=== PATIENT | male | born 1970 | race African-American/Black ===

== ENCOUNTER 2016-06-22 23:55 | Emergency (ER) | payer BC ==
--- NOTE | ~2016-06-22 | CT2 ---
[facility] A Service of [facility] & [facility] RADIOLOGY TEXT RESULTS PATIENT: KADEEM ANDERS LOCATION: [facility] : [birth year] UNIT #: [id number] AGE: [address]: Kwame Martínez MD SEX: M ORDER DR: [id number] [facility] [address] [place], [place] [address] [id number] E MR#: [id number] Acc #: [id number] NAME: KADEEM ANDERS : 1970 SEX: M STUDY DATE/TIME: 06/23/2016 0047 UNIT: [facility] ROOM: STUDY DESCRIPTION: CT Abd and Pelv W Cont Attending Physician: Kwame Martínez M.D. Ordering Physician: Kwame Martínez M.D. Primary Care Physician: Primary Care Physician No MEDICAL IMAGING REPORT This report is preliminary unless electronic signature is present EXAM CT abdomen and pelvis 06/23/2016 at 0047 hours INDICATIONS History of Crohn disease. Lower abdominal pain for the last 2 days. TECHNIQUE Axial images were obtained through the abdomen and pelvis following IV contrast administration. Multiplanar reformats were obtained. This CT exam was performed with one or more of the following radiation dose reduction techniques: automatic exposure control, adjustment of mA and/or kV according to patient size, and iterative reconstruction. COMPARISON STUDIES Comparison made with 04/23/2016. FINDINGS CT ABDOMEN: There is some atelectasis in both lung bases. Gallbladder is normal. There is diffuse hepatic steatosis. There is a cyst in the upper pole of the right kidney. The solid organs are otherwise normal. The unopacified GI tract is normal. There is no free fluid or adenopathy. CT PELVIS: Urinary bladder remains normal. There is a small volume of free fluid in the pelvis. The appendix is normal. The remainder of the colon is normal. There are some prominent mesenteric lymph nodes in the pelvis which are probably reactive. These are not significantly changed. Redemonstrated is marked abnormal wall thickening in the terminal ileum and distal segment of the ileum in the right hemipelvis. The degree of wall thickening is relatively stable from prior. There is fat stranding and fluid in the adjacent mesentery. This is also relatively stable. Findings are compatible with the given history of Crohn disease. The small bowel proximal to this inflamed area is essentially normal above a STS. [facility] A Service of [facility] RADIOLOGY TEXT RESULTS PATIENT: KADEEM ANDERS LOCATION: [facility] : [birth year] UNIT #: [id number] AGE: [address]: Kwame Martínez MD SEX: M ORDER DR: dilated loop in the right lower quadrant. This dilated ileal loop measures up to about 4.7 cm in diameter. No abscess is identified. 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 IMPRESSION 1. Redemonstrated is marked abnormal thickening of the distal and terminal ileum very similar in appearance to the prior study from 04/23/2016. There is fat stranding in the adjacent mesentery with some mesenteric fluid as well. Findings are in keeping with the given history of Crohn disease. No evidence of an abscess. The ileum just proximal to the inflamed loop is distended today. However, the rest of the small bowel is normal. Definite small bowel obstruction is not identified. 2. The colon and appendix are normal. 3. Fatty infiltration of the liver. Dictated by... Gerald Paulino Jr., M.D. THIS IS AN ELECTRONICALLY VERIFIED REPORT Gerald Paulino Jr., M.D. at 06/24/2016 6:40 AM Chase TD: 06/23/2016 12:18 JOB #: [id number] MEDICAL IMAGING REPORT COPY
[~2016-06-22 23:55] MED LIST: AMARYL2 MG PO; AMLODIPINE BESYL5 MG PO; BUDESONIDE EC3 MG PO; FLAGYL PO; GLIMEPIRIDE2 MG PO; GLUCOPHAGE500 MG PO; HUMIRA CRO40 MG/0.8 SUBQ; LEVAQUIN PO; LISINOPRIL-HCTZ1 T14 PO; PREDNISONE; PREDNISONE PO; PROTONIX PO
[2016-06-23 00:04] LABS: BASOPHIL% 0.2 % (0-2.5); DIFF IND YES; EOSINOPHIL# 0.1 X10e3 (0-0.7); EOSINOPHIL% 0.7 % (0.0-7.0); HEMATOCRIT 41.5 % (38.0-50.0); HEMOGLOBIN 13.8 gm/dL (13.0-16.0); LYMPHOCYTE# 2.2 X10e3 (1.0-3.5); MEAN CELL VOLUME 81.8 FL (83-96); MEAN CORPUSCULAR HEMOGLOBIN 27.2 PG (28-34); MEAN CORPUSCULAR HGB CONC 33.3 g/dL (30-36); MEAN PLATELET VOLUME 7.6 FL (6.5-11.5); MONOCYTE# 1.3 X10e3 (0-1.0); MONOCYTE% 7.9 % (3.0-12.0); NEUTROPHIL# 12.9 X10e3 (1.5-7.1); NEUTROPHIL% 78.2 % (40-75); PLATELET COUNT 310 X10e3 (140-420); RED BLOOD COUNT 5.07 X10e (3.90-5.60); RED CELL DISTRIBUTION WIDTH 13.4 % (11.0-15.5); WHITE BLOOD COUNT 16.5 X10e3 (4.0-10.5)
[2016-06-23 00:17] LABS: ALBUMIN SERUM 3.8 g/dL (3.5-5.0); ALKALINE PHOSPHATASE 58 U/L (32-92); ALT (SGPT) 15 U/L (10-40); AMYLASE 20 U/L (0-46); AST (SGOT) 15 U/L (10-42); BILIRUBIN, DIRECT 0.1 mg/dL (0.0-0.2); BILIRUBIN,INDIRECT 0.7 mg/dL (0.0-0.9); BILIRUBIN,TOTAL 0.8 mg/dL (0.2-2.0); BLOOD UREA NITROGEN 10 mg/dL (9-23); BUN/CREATININE RATIO 9.09; CALCIUM SERUM 8.9 mg/dL (8.4-10.2); CARBON DIOXIDE 27 mmol/L (22-31); CHLORIDE 97 mmol/L (100-111); CREATININE SERUM 1.1 mg/dL (0.6-1.4); GLOM FILT RATE Estimated ABOVE60 mL/min (>60); GLUCOSE FASTING 141 mg/dL (70-110); LIPASE 19 U/L (22-51); POTASSIUM 3.2 mmol/L (3.5-5.1); PROTEIN TOTAL SERUM 7.2 g/dL (6.0-8.3); SODIUM 134 mmol/L (135-145)
[2016-06-23 00:53] LABS: PLATELET ESTIMATE NORMAL (NORMAL)
[2016-06-23 00:54] LABS: RBC NORMAL YES; SMUDGE CELLS 4 /100
[2016-06-23 01:44] LABS: URINE SOURCE CLEAN CATCH
[2016-06-23 01:59] LABS: URINE APPEARANCE CLEAR; URINE BILIRUBIN NEG (NEG); URINE BLOOD 3+ (NEG); URINE COLOR YELLOW; URINE GLUCOSE NEG (NEG); URINE KETONE NEG (NEG); URINE LEUKOCYTE ESTERASE NEG (NEG); URINE NITRATE NEG (NEG); URINE PH 5.5 (5-8); URINE PROTEIN NEG (NEG)
[2016-06-23 02:02] LABS: CULTURE INDICATED? NO; URINE BACTERIA AUWI NEG (NEGATIVE); URINE SQUAMOUS EPITHELIAL CELL NONE SEEN /[HPF]; UWBCS1 AUWI 0-2 (0-5)
== END 2016-06-23 02:45 | disposition home or self-care (01) ==
LOC: CED 23:55
PROVIDERS: Emergency Medicine
DX: K50.90 Crohn's disease, unspecified, without complications (principal); Z79.899 Other long term (current) drug therapy; Z87.891 Personal history of nicotine dependence
CPT/HCPCS: 36415; 74177; 80048; 80076; 81003; 82150; 83690; 85025; 96361; 96372; 96374; 96375; 96376; 99284; J0500; J1170; J2930; Q9967

== ENCOUNTER 2016-06-27 19:40 | Emergency (ER) | payer BC ==
[2016-06-27 18:57] LABS: BASOPHIL% 0.3 % (0-2.5); EOSINOPHIL# 0.1 X10e3 (0-0.7); EOSINOPHIL% 0.6 % (0.0-7.0); HEMATOCRIT 42.5 % (38.0-50.0); LYMPHOCYTE# 2.4 X10e3 (1.0-3.5); LYMPHOCYTE% 13.9 % (17.0-45.0); MEAN CELL VOLUME 81.3 FL (83-96); MEAN CORPUSCULAR HEMOGLOBIN 26.7 PG (28-34); MEAN CORPUSCULAR HGB CONC 32.8 g/dL (30-36); MEAN PLATELET VOLUME 7.1 FL (6.5-11.5); MONOCYTE# 1.3 X10e3 (0-1.0); MONOCYTE% 7.1 % (3.0-12.0); NEUTROPHIL# 13.7 X10e3 (1.5-7.1); NEUTROPHIL% 78.1 % (40-75); PLATELET COUNT 350 X10e3 (140-420); RED BLOOD COUNT 5.23 X10e (3.90-5.60); RED CELL DISTRIBUTION WIDTH 13.4 % (11.0-15.5); WHITE BLOOD COUNT 17.5 X10e3 (4.0-10.5)
[2016-06-27 18:59] LABS: DIFF IND YES
[2016-06-27 19:14] LABS: ALBUMIN SERUM 3.8 g/dL (3.5-5.0); ALKALINE PHOSPHATASE 59 U/L (32-92); ALT (SGPT) 30 U/L (10-40); AMYLASE 54 U/L (0-46); AST (SGOT) 22 U/L (10-42); BILIRUBIN, DIRECT 0.1 mg/dL (0.0-0.2); BILIRUBIN,INDIRECT 0.1 mg/dL (0.0-0.9); BILIRUBIN,TOTAL 0.2 mg/dL (0.2-2.0); BLOOD UREA NITROGEN 12 mg/dL (9-23); CARBON DIOXIDE 30 mmol/L (22-31); CHLORIDE 97 mmol/L (100-111); CREATININE SERUM 1.1 mg/dL (0.6-1.4); GLOM FILT RATE Estimated ABOVE60 mL/min (>60); GLUCOSE FASTING 135 mg/dL (70-110); LIPASE 62 U/L (22-51); POTASSIUM 3.2 mmol/L (3.5-5.1); PROTEIN TOTAL SERUM 7.1 g/dL (6.0-8.3); SODIUM 138 mmol/L (135-145)
[2016-06-27 19:19] LABS: PLATELET ESTIMATE NORMAL (NORMAL); RBC NORMAL YES
== END 2016-06-27 22:30 | disposition home or self-care (01) ==
LOC: CED 19:40
PROVIDERS: Emergency Medicine
DX: K50.90 Crohn's disease, unspecified, without complications (principal); E11.9 Type 2 diabetes mellitus without complications; I10 Essential (primary) hypertension
CPT/HCPCS: 36415; 80048; 80076; 82150; 83690; 85025; 96361; 96374; 96375; 96376; 99284; J2270; J2550; J2930

== ENCOUNTER 2016-07-14 18:47 | Emergency (ER) | payer BC ==
[2016-07-14 20:07] LABS: BASOPHIL% 0.1 % (0-2.5); DIFF IND YES; EOSINOPHIL% 0.3 % (0.0-7.0); HEMATOCRIT 40.2 % (38.0-50.0); HEMOGLOBIN 13.1 gm/dL (13.0-16.0); LYMPHOCYTE# 1.4 X10e3 (1.0-3.5); LYMPHOCYTE% 8.1 % (17.0-45.0); MEAN CORPUSCULAR HEMOGLOBIN 26.7 PG (28-34); MEAN CORPUSCULAR HGB CONC 32.5 g/dL (30-36); MEAN PLATELET VOLUME 7.2 FL (6.5-11.5); MONOCYTE# 1.1 X10e3 (0-1.0); MONOCYTE% 6.4 % (3.0-12.0); NEUTROPHIL# 14.9 X10e3 (1.5-7.1); NEUTROPHIL% 85.1 % (40-75); PLATELET COUNT 239 X10e3 (140-420); RED BLOOD COUNT 4.91 X10e (3.90-5.60); RED CELL DISTRIBUTION WIDTH 14.1 % (11.0-15.5); WHITE BLOOD COUNT 17.6 X10e3 (4.0-10.5)
[2016-07-14 20:32] LABS: PLATELET ESTIMATE NORMAL (NORMAL); RBC NORMAL YES
[2016-07-14 20:43] LABS: ALBUMIN SERUM 3.4 g/dL (3.5-5.0); BILIRUBIN, DIRECT 0.3 mg/dL (0.0-0.2); BILIRUBIN,INDIRECT 0.9 mg/dL (0.0-0.9); BILIRUBIN,TOTAL 1.2 mg/dL (0.2-2.0); BUN/CREATININE RATIO 11.11; CALCIUM SERUM 8.7 mg/dL (8.4-10.2); CREATININE SERUM 0.9 mg/dL (0.6-1.4); GLOM FILT RATE Estimated 116.6 mL/min (>60); POTASSIUM 3.9 mmol/L (3.5-5.1); PROTEIN TOTAL SERUM 6.3 g/dL (6.0-8.3)
== END 2016-07-14 22:45 | disposition home or self-care (01) ==
LOC: CED 18:47
PROVIDERS: Emergency Medicine
DX: K50.90 Crohn's disease, unspecified, without complications (principal)
CPT/HCPCS: 36415; 80048; 80076; 82150; 83690; 85025; 96361; 96365; 96375; 99284; J1170; J2270; J2930

== ENCOUNTER 2016-08-09 23:59 | Emergency (ER) | payer BC ==
[2016-08-09 22:30] LABS: BASOPHIL% 0.3 % (0-2.5); EOSINOPHIL# 0.1 X10e3 (0-0.7); EOSINOPHIL% 0.4 % (0.0-7.0); HEMATOCRIT 40.9 % (38.0-50.0); HEMOGLOBIN 13.3 gm/dL (13.0-16.0); LYMPHOCYTE# 2.6 X10e3 (1.0-3.5); MEAN CELL VOLUME 82.7 FL (83-96); MEAN CORPUSCULAR HEMOGLOBIN 26.9 PG (28-34); MEAN CORPUSCULAR HGB CONC 32.6 g/dL (30-36); MEAN PLATELET VOLUME 7.4 FL (6.5-11.5); MONOCYTE# 1.2 X10e3 (0-1.0); NEUTROPHIL# 11.4 X10e3 (1.5-7.1); NEUTROPHIL% 74.3 % (40-75); PLATELET COUNT 299 X10e3 (140-420); RED BLOOD COUNT 4.95 X10e (3.90-5.60); RED CELL DISTRIBUTION WIDTH 13.3 % (11.0-15.5); WHITE BLOOD COUNT 15.4 X10e3 (4.0-10.5)
[2016-08-09 22:43] LABS: DIFF IND NO
[2016-08-09 22:48] LABS: ANISOCYTOSIS SL; DIFFERENTIAL COMMENT ATYP.LYMPHS; OVALOCYTES PRESENT; PLATELET ESTIMATE NORMAL (NORMAL)
[2016-08-09 22:57] LABS: BILIRUBIN, DIRECT 0.1 mg/dL (0.0-0.2); BILIRUBIN,INDIRECT 0.6 mg/dL (0.0-0.9); BILIRUBIN,TOTAL 0.7 mg/dL (0.2-2.0); BUN/CREATININE RATIO 8.33; CALCIUM SERUM 9.2 mg/dL (8.4-10.2); CREATININE SERUM 1.2 mg/dL (0.6-1.4); GLOM FILT RATE Estimated 82.4 mL/min (>60); POTASSIUM 3.5 mmol/L (3.5-5.1)
== END 2016-08-10 01:45 | disposition home or self-care (01) ==
LOC: CED 23:59
PROVIDERS: Emergency Medicine
DX: K50.90 Crohn's disease, unspecified, without complications (principal); Z98.890 Other specified postprocedural states
CPT/HCPCS: 36415; 80048; 80076; 82150; 83690; 85025; 96361; 96374; 96375; 99284; J1170; J2405; J2930

== ENCOUNTER 2016-08-26 12:43 | Emergency (ER) | payer BC ==
--- NOTE | ~2016-08-26 | CT2 ---
[facility] A Service of [facility] RADIOLOGY TEXT RESULTS PATIENT: KADEEM ANDERS LOCATION: [facility] : 66 UNIT #: [id number] AGE: [address]: Nelson Napier DO SEX: M ORDER DR: [id number] [facility] [address] [place], [place] [address] [id number] E MR#: [id number] Acc #: [id number] NAME: KADEEM ANDERS : 1970 SEX: M STUDY DATE/TIME: 08/26/2016 16:59 UNIT: [place] ROOM: STUDY DESCRIPTION: CT Abd and Pelv W Cont Attending Physician: Nelson Napier D.O. Ordering Physician: Nelson Napier D.O. Primary Care Physician: Primary Care Physician No MEDICAL IMAGING REPORT This report is preliminary unless electronic signature is present EXAM CT abdomen and pelvis with contrast, 08/26/2016 HISTORY 46-year-old male with abdominal pain today. History of Crohn disease. COMPARISON CT abdomen and pelvis 06/23/[address] exam was performed with one or more of the following radiation dose reduction techniques: automatic exposure control, adjustment of mA and/or kV according to patient size, and iterative reconstruction. FINDINGS There is mild dependent bibasilar atelectasis in the visualized lung bases. The liver, spleen, pancreas, gallbladder, both adrenal glands are within normal limits. Stable right renal cyst. Kidneys otherwise unremarkable. Abdominal aorta normal in course and caliber without dissection. There is a trace amount of perihepatic ascites. There is again noted long-segment circumferential thickening of the distal ileum with moderate associated mesenteric inflammatory stranding. This results in multiple mildly dilated and fluid-filled loops of distal jejunum and ileum. Findings consistent with history of Crohn disease and acute inflammation. There are multiple reactive lymph nodes in the small bowel mesentery. No evidence of a drainable abscess. The appendix is normal. Colon is unremarkable. No free intraperitoneal air. The urinary bladder and prostate gland are unremarkable. There is a small amount of free pelvic fluid. No acute bony abnormality. [facility] A Service of [facility] RADIOLOGY TEXT RESULTS PATIENT: KADEEM ANDERS LOCATION: [facility] : 66 UNIT #: [id number] AGE: [address]: Nelson Napier DO SEX: M ORDER DR: 1. Acute inflammation of a long segment of the distal ileum, likely secondary to active Crohn disease. There is moderate mesenteric inflammatory stranding with free fluid in the mesentery, pelvis, and perihepatic space. No free intraperitoneal air. The segmental inflammation results in multiple minimally dilated and fluid-filled loops of distal jejunum and ileum. 2. Normal appendix. Dictated by... Timoteo Everett M.D. THIS IS AN ELECTRONICALLY VERIFIED REPORT Timoteo Everett M.D. at 08/27/2016 10:57 PM TYESHA/tena TD: 08/26/2016 21:55 JOB #: [id number] MEDICAL IMAGING REPORT Page 1 of 1 COPY
--- NOTE | ~2016-08-26 | CR2 ---
[facility] A Service of [facility] RADIOLOGY TEXT RESULTS PATIENT: KADEEM ANDERS LOCATION: [place] : 66 UNIT #: [id number] AGE: [address]: Nelson Napier DO SEX: M ORDER DR: [id number] [facility] [address] [place], [place] [address] [id number] E MR#: [id number] Acc #: [id number] NAME: KADEEM ANDERS : 1970 SEX: M STUDY DATE/TIME: 08/26/2016 14:21 UNIT: [facility] ROOM: STUDY DESCRIPTION: CR Abdomen Acute Series Attending Physician: Nelson Napier D.O. Ordering Physician: Nelson Napier D.O. Primary Care Physician: No Primary Care Physician MEDICAL IMAGING REPORT This report is preliminary unless electronic signature is present EXAM Acute abdominal series. HISTORY Crohn episode. Pain today. Crohn's disease. REPORT AP radiograph of the chest is presented with supine and upright radiographs of the abdomen and pelvis. COMPARISON CT examination 06/23/2016. FINDINGS Degenerative changes in the spine. No acute appearing bony abnormality. Heart normal in size. Mediastinal contours are normal. The lungs are well inflated and clear. The bowel gas pattern is normal. No free air. Non indication of ileus or obstruction. Air and stool seen through colon to rectum. Where visible, solid organ contours unremarkable. If it would assist in patient management, CT of abdomen and pelvis could be further assessed with repeat CT examination, Dictated by... Antonio Miller M.D. THIS IS AN ELECTRONICALLY VERIFIED REPORT Antonio Miller M.D. at 08/28/2016 9:03 AM GISEL/ricardo TD: 08/26/2016 16:26 JOB #: [id number] [facility] A Service of [facility] RADIOLOGY TEXT RESULTS PATIENT: KADEEM ANDERS LOCATION: [place] : [birth year] UNIT #: [id number] AGE: [address]: Nelson Napier DO SEX: M ORDER DR: MEDICAL IMAGING REPORT Page 1 of 1 COPY
[2016-08-26 13:41] LABS: URINE SOURCE CLEAN CATCH
[2016-08-26 13:51] LABS: URINE APPEARANCE CLEAR; URINE BILIRUBIN NEG (NEG); URINE BLOOD 3+ (NEG); URINE COLOR YELLOW; URINE GLUCOSE NEG (NEG); URINE KETONE TRACE (NEG); URINE LEUKOCYTE ESTERASE NEG (NEG); URINE NITRATE NEG (NEG); URINE PROTEIN NEG (NEG); URINE SPECIFIC GRAVITY 1.031 (1.003-1.035)
[2016-08-26 14:14] LABS: URINE BACTERIA AUWI NEG (NEGATIVE); URINE SQUAMOUS EPITHELIAL CELL NONE SEEN /[HPF]; UWBCS1 AUWI 0-2 (0-5)
[2016-08-26 14:22] LABS: BASOPHIL% 0.2 % (0-2.5); DIFF IND YES; EOSINOPHIL# 0.1 X10e3 (0-0.7); EOSINOPHIL% 0.3 % (0.0-7.0); HEMATOCRIT 41.7 % (38.0-50.0); HEMOGLOBIN 13.5 gm/dL (13.0-16.0); LYMPHOCYTE# 2.6 X10e3 (1.0-3.5); LYMPHOCYTE% 16.9 % (17.0-45.0); MEAN CELL VOLUME 83.1 FL (83-96); MEAN CORPUSCULAR HEMOGLOBIN 26.9 PG (28-34); MEAN CORPUSCULAR HGB CONC 32.3 g/dL (30-36); MEAN PLATELET VOLUME 7.2 FL (6.5-11.5); MONOCYTE% 6.6 % (3.0-12.0); NEUTROPHIL# 11.8 X10e3 (1.5-7.1); PLATELET COUNT 297 X10e3 (140-420); RED BLOOD COUNT 5.02 X10e (3.90-5.60); RED CELL DISTRIBUTION WIDTH 13.1 % (11.0-15.5); WHITE BLOOD COUNT 15.5 X10e3 (4.0-10.5)
[2016-08-26 14:25] LABS: CULTURE INDICATED? NO
[2016-08-26 14:35] LABS: BILIRUBIN, DIRECT 0.1 mg/dL (0.0-0.2); BILIRUBIN,INDIRECT 0.8 mg/dL (0.0-0.9); BILIRUBIN,TOTAL 0.9 mg/dL (0.2-2.0); CALCIUM SERUM 9.3 mg/dL (8.4-10.2); GLOM FILT RATE Estimated 102.7 mL/min (>60); POTASSIUM 3.7 mmol/L (3.5-5.1); PROTEIN TOTAL SERUM 7.1 g/dL (6.0-8.3)
[2016-08-26 15:09] LABS: PLATELET ESTIMATE NORMAL (NORMAL)
== END 2016-08-26 19:30 | disposition home or self-care (01) ==
LOC: CED 12:43
PROVIDERS: Emergency Medicine
DX: K50.90 Crohn's disease, unspecified, without complications (principal)
CPT/HCPCS: 36415; 74022; 74177; 80048; 80076; 81003; 83690; 85025; 96361; 96374; 96375; 96376; 99284; J1170; J2405; Q9967

== ENCOUNTER 2016-09-14 00:43 | Emergency (ER) | payer BC ==
[2016-09-14 03:21] LABS: BASOPHIL# 0.1 X10e3 (0-0.3); BASOPHIL% 0.4 % (0-2.5); EOSINOPHIL# 0.1 X10e3 (0-0.7); EOSINOPHIL% 0.6 % (0.0-7.0); HEMATOCRIT 41.4 % (38.0-50.0); HEMOGLOBIN 13.3 gm/dL (13.0-16.0); LYMPHOCYTE# 2.3 X10e3 (1.0-3.5); LYMPHOCYTE% 18.5 % (17.0-45.0); MEAN CELL VOLUME 83.7 FL (83-96); MEAN CORPUSCULAR HEMOGLOBIN 26.8 PG (28-34); MEAN PLATELET VOLUME 7.5 FL (6.5-11.5); MONOCYTE# 1.1 X10e3 (0-1.0); MONOCYTE% 8.5 % (3.0-12.0); NEUTROPHIL# 9.1 X10e3 (1.5-7.1); PLATELET COUNT 271 X10e3 (140-420); RED BLOOD COUNT 4.95 X10e (3.90-5.60); RED CELL DISTRIBUTION WIDTH 13.5 % (11.0-15.5); WHITE BLOOD COUNT 12.6 X10e3 (4.0-10.5)
[2016-09-14 03:23] LABS: DIFF IND NO
[2016-09-14 03:45] LABS: ALBUMIN SERUM 3.8 g/dL (3.5-5.0); BILIRUBIN, DIRECT 0.1 mg/dL (0.0-0.2); BILIRUBIN,INDIRECT 0.3 mg/dL (0.0-0.9); BILIRUBIN,TOTAL 0.4 mg/dL (0.2-2.0); BUN/CREATININE RATIO 6.42; CREATININE SERUM 1.4 mg/dL (0.6-1.4); GLOM FILT RATE Estimated 68.4 mL/min (>60); POTASSIUM 3.5 mmol/L (3.5-5.1); PROTEIN TOTAL SERUM 6.8 g/dL (6.0-8.3)
== END 2016-09-14 05:45 | disposition home or self-care (01) ==
LOC: CED 00:43
PROVIDERS: Emergency Medicine
DX: R10.9 Unspecified abdominal pain (principal); E11.9 Type 2 diabetes mellitus without complications; I10 Essential (primary) hypertension; K21.9 Gastro-esophageal reflux disease without esophagitis
CPT/HCPCS: 36415; 80048; 80076; 82150; 83690; 85025; 96361; 96374; 99284; J1885

== ENCOUNTER 2016-09-18 12:18 | Emergency (ER) | payer BC ==
--- NOTE | ~2016-09-18 | CT2 ---
[facility] A Service of [facility] RADIOLOGY TEXT RESULTS PATIENT: KADEEM ANDERS LOCATION: [place] : [birth year] UNIT #: [id number] AGE: [address]: Yvette Coley MD SEX: M ORDER DR: [id number] [facility] [address] [place], [place] [address] [id number] E MR#: [id number] Acc #: [id number] NAME: KADEEM ANDERS : 1970 SEX: M STUDY DATE/TIME: 09/18/2016 14:58 UNIT: [place] ROOM: STUDY DESCRIPTION: CT Abd and Pelv W Cont Attending Physician: Yvette Coley M.D. Ordering Physician: Yvette Coley M.D. Primary Care Physician: Primary Care Physician No MEDICAL IMAGING REPORT This report is preliminary unless electronic signature is present EXAM CT of the abdomen and pelvis DATE OF STUDY 09/18/2016 COMPARISON 08/26/2016 HISTORY SUPPLIED Mid to lower abdominal pain and diarrhea for 3-4 days. History of Crohn's disease. TECHNIQUE Axial imaging of the abdomen and pelvis was performed without IV contrast. This CT exam was performed with one or more of the following radiation dose reduction techniques: automatic exposure control, adjustment of mA and/or kV according to patient size, and iterative reconstruction. FINDINGS The lung bases are unremarkable. The liver shows some hepatic steatosis. Spleen is of normal size. Gallbladder is unremarkable. Pancreas appears normal. Adrenal glands are normal and the left kidney is normal. There is an upper pole simple renal cyst on the right. There is dilatation and small bowel thickening in the distal ileum. There is minimal thickening of the terminal ileum and this is actually improved relative to August 26. The proximal small bowel is not dilated or thickened. The colon appears normal. The appendix is normal. Small reactive nodes are present in the right lower quadrant mesentery. There is a small amount of free fluid in the dependent portion of the pelvis. No abscess is identified. [facility] A Service of [facility] RADIOLOGY TEXT RESULTS PATIENT: KADEEM ANDERS LOCATION: [place] : [birth year] UNIT #: [id number] AGE: [address]: Yvette Coley MD SEX: M ORDER DR: CONCLUSION 1. Radiographic findings consistent with acute Crohn's flare up in the distal ileum with small bowel dilatation and thickening within the ileum locally. There is also evidence of reactive lymphadenopathy. These findings are present on the patient's last study of 08/26/2016 and actually have improved slightly. 2. Free fluid dependently within the pelvis. 3. Hepatic steatosis. Dictated by... Antonio Flores M.D. THIS IS AN ELECTRONICALLY VERIFIED REPORT Antonio Flores M.D. at 09/19/2016 6:06 PM GILLIAN/jesus TD: 09/18/2016 18:49 JOB #: [id number] MEDICAL IMAGING REPORT Page 1 of 1 COPY
[2016-09-18 13:05] LABS: BASOPHIL# 0.1 X10e3 (0-0.3); BASOPHIL% 0.4 % (0-2.5); EOSINOPHIL# 0.1 X10e3 (0-0.7); EOSINOPHIL% 0.5 % (0.0-7.0); HEMATOCRIT 41.3 % (38.0-50.0); HEMOGLOBIN 13.6 gm/dL (13.0-16.0); LYMPHOCYTE# 2.4 X10e3 (1.0-3.5); LYMPHOCYTE% 16.8 % (17.0-45.0); MEAN CELL VOLUME 82.8 FL (83-96); MEAN CORPUSCULAR HEMOGLOBIN 27.2 PG (28-34); MEAN CORPUSCULAR HGB CONC 32.8 g/dL (30-36); MEAN PLATELET VOLUME 7.5 FL (6.5-11.5); MONOCYTE# 0.9 X10e3 (0-1.0); MONOCYTE% 6.6 % (3.0-12.0); NEUTROPHIL# 10.8 X10e3 (1.5-7.1); NEUTROPHIL% 75.7 % (40-75); PLATELET COUNT 303 X10e3 (140-420); RED BLOOD COUNT 4.99 X10e (3.90-5.60); RED CELL DISTRIBUTION WIDTH 13.4 % (11.0-15.5); WHITE BLOOD COUNT 14.3 X10e3 (4.0-10.5)
[2016-09-18 13:06] LABS: DIFF IND NO
[2016-09-18 13:34] LABS: BILIRUBIN, DIRECT 0.1 mg/dL (0.0-0.2); BILIRUBIN,INDIRECT 0.4 mg/dL (0.0-0.9); BILIRUBIN,TOTAL 0.5 mg/dL (0.2-2.0); CALCIUM SERUM 9.5 mg/dL (8.4-10.2); GLOM FILT RATE Estimated 102.7 mL/min (>60); POTASSIUM 3.5 mmol/L (3.5-5.1); PROTEIN TOTAL SERUM 7.5 g/dL (6.0-8.3)
[2016-09-18 15:02] LABS: URINE SOURCE CLEAN CATCH
[2016-09-18 15:15] LABS: URINE APPEARANCE CLEAR; URINE BILIRUBIN NEG (NEG); URINE BLOOD 2+ (NEG); URINE COLOR YELLOW; URINE GLUCOSE NEG (NEG); URINE KETONE NEG (NEG); URINE LEUKOCYTE ESTERASE NEG (NEG); URINE NITRATE NEG (NEG); URINE PH 5.5 (5-8); URINE PROTEIN NEG (NEG); URINE SPECIFIC GRAVITY 1.021 (1.003-1.035); URINE UROBILINOGEN 0.2 MG/DL (NEG)
[2016-09-18 15:26] LABS: URBCS1 AUWI 25-50 /[HPF] (0-2); URINE BACTERIA AUWI NEG (NEGATIVE); URINE SQUAMOUS EPITHELIAL CELL NONE SEEN /[HPF]; UWBCS1 AUWI 0-2 (0-5)
[2016-09-18 15:31] LABS: CULTURE INDICATED? NO
[2016-09-18 15:47] LABS: AMPHETAMINE NEG (NEG); BARBITURATES NEG (NEG); BENZODIAZEPINES NEG (NEG); COCAINE NEG (NEG); MARIJUANA POS (NEG); OPIATES POS (NEG); TRICYCLIC ANTIDEPRESSANTS NEG (NEG); U METHADONE NEG (NEG)
== END 2016-09-18 16:00 | disposition home or self-care (01) ==
LOC: CED 12:18
PROVIDERS: Student in an Organized Health Care Education/Training Program
DX: K50.90 Crohn's disease, unspecified, without complications (principal); E11.9 Type 2 diabetes mellitus without complications; I10 Essential (primary) hypertension; Z98.890 Other specified postprocedural states
CPT/HCPCS: 36415; 74177; 80048; 80076; 80307; 81003; 83690; 85025; 96361; 96374; 96375; 99284; J1170; J2405; Q9967

== ENCOUNTER 2016-10-16 21:40 | Emergency (ER) | payer BC ==
--- NOTE | ~2016-10-16 | CR2 ---
[facility] A Service of [facility] RADIOLOGY TEXT RESULTS PATIENT: KADEEM ANDERS LOCATION: [place] : [birth year] UNIT #: [id number] AGE: [address]: Yvette Coley MD SEX: M ORDER DR: [id number] [facility] [address] [place], [place] [address] [id number] E MR#: [id number] Acc #: [id number] NAME: KADEEM ANDERS : 1970 SEX: M STUDY DATE/TIME: 10/16/2016 23:23 UNIT: [place] ROOM: STUDY DESCRIPTION: CR Abdomen Acute Series Attending Physician: Yvette Coley M.D. Ordering Physician: Yvette Coley M.D. Primary Care Physician: Primary Care Physician No MEDICAL IMAGING REPORT This report is preliminary unless electronic signature is present EXAM Acute abdominal series INDICATION Generalized abdominal pain and constipation since Thursday. Crohn's disease. PROCEDURE Frontal view of the chest, supine and upright views abdomen and pelvis. COMPARISON 08/26/2016. FINDINGS Heart size is within normal limits. No dense consolidation. No free air. There is a prominent air-filled of what appears to be small bowel loop in the midabdomen measuring up to 6.5 cm. This could also represent a portion of the colon. No other dilated small bowel loops are seen. IMPRESSION Nonspecific prominent air-filled bowel loop in the [id number] abdomen. It is not clear whether this represents small or large bowel. Otherwise there are no dilated small bowel loops and no evidence for free air. Dictated by... Reji Max M.D. THIS IS AN ELECTRONICALLY VERIFIED REPORT Reji Max M.D. at 10/22/2016 3:09 PM YURIDIA/andrew [facility] A Service [facility] RADIOLOGY TEXT RESULTS PATIENT: KADEEM ANDERS LOCATION: [facility] : 66 UNIT #: [id number] AGE: [address]: Yvette Coley MD SEX: M ORDER DR: TD: 10/17/2016 12:41 JOB #: [id number] MEDICAL IMAGING REPORT Page 1 of 1 COPY
[2016-10-16 23:39] LABS: BASOPHIL% 0.3 % (0-2.5); EOSINOPHIL# 0.1 X10e3 (0-0.7); EOSINOPHIL% 0.9 % (0.0-7.0); HEMATOCRIT 44.1 % (38.0-50.0); HEMOGLOBIN 14.2 gm/dL (13.0-16.0); LYMPHOCYTE# 2.5 X10e3 (1.0-3.5); LYMPHOCYTE% 20.9 % (17.0-45.0); MEAN CORPUSCULAR HEMOGLOBIN 26.7 PG (28-34); MEAN CORPUSCULAR HGB CONC 32.2 g/dL (30-36); MEAN PLATELET VOLUME 7.2 FL (6.5-11.5); MONOCYTE% 8.1 % (3.0-12.0); NEUTROPHIL# 8.3 X10e3 (1.5-7.1); NEUTROPHIL% 69.8 % (40-75); PLATELET COUNT 359 X10e3 (140-420); RED BLOOD COUNT 5.32 X10e (3.90-5.60); RED CELL DISTRIBUTION WIDTH 13.2 % (11.0-15.5); WHITE BLOOD COUNT 11.9 X10e3 (4.0-10.5)
[2016-10-16 23:40] LABS: DIFF IND NO
[2016-10-17 00:04] LABS: ALBUMIN SERUM 3.9 g/dL (3.5-5.0); BILIRUBIN, DIRECT 0.1 mg/dL (0.0-0.2); BILIRUBIN,INDIRECT 1.2 mg/dL (0.0-0.9); BILIRUBIN,TOTAL 1.3 mg/dL (0.2-2.0); BUN/CREATININE RATIO 7.77; CALCIUM SERUM 9.1 mg/dL (8.4-10.2); CREATININE SERUM 0.9 mg/dL (0.6-1.4); GLOM FILT RATE Estimated 116.6 mL/min (>60); POTASSIUM 3.2 mmol/L (3.5-5.1); PROTEIN TOTAL SERUM 7.3 g/dL (6.0-8.3)
[2016-10-17 00:11] LABS: URINE SOURCE CLEAN CATCH
[2016-10-17 00:22] LABS: AMPHETAMINE NEG (NEG); BARBITURATES NEG (NEG); BENZODIAZEPINES NEG (NEG); COCAINE NEG (NEG); MARIJUANA POS (NEG); OPIATES NEG (NEG); TRICYCLIC ANTIDEPRESSANTS NEG (NEG); U METHADONE NEG (NEG)
[2016-10-17 00:23] LABS: URINE APPEARANCE CLEAR; URINE BILIRUBIN NEG (NEG); URINE BLOOD 2+ (NEG); URINE COLOR YELLOW; URINE GLUCOSE NEG (NEG); URINE KETONE TRACE (NEG); URINE LEUKOCYTE ESTERASE NEG (NEG); URINE NITRATE NEG (NEG); URINE PH 5.5 (5-8); URINE PROTEIN NEG (NEG); URINE SPECIFIC GRAVITY 1.027 (1.003-1.035)
[2016-10-17 00:25] LABS: URBCS1 AUWI 25-50 /[HPF] (0-2); URINE BACTERIA AUWI NEG (NEGATIVE); URINE SQUAMOUS EPITHELIAL CELL NONE SEEN /[HPF]; UWBCS1 AUWI 0-2 (0-5)
[2016-10-17 00:26] LABS: CULTURE INDICATED? NO
== END 2016-10-17 01:00 | disposition home or self-care (01) ==
LOC: CED 21:40
PROVIDERS: Emergency Medicine; Student in an Organized Health Care Education/Training Program
DX: K50.90 Crohn's disease, unspecified, without complications (principal); F12.10 Cannabis abuse, uncomplicated; I10 Essential (primary) hypertension
CPT/HCPCS: 36415; 74022; 80048; 80076; 80307; 81003; 83690; 85025; 96361; 96372; 96374; 96375; 99284; C9113; J0500; J2270; J2405

== ENCOUNTER → 2016-10-24 | Outpatient (CLI) | payer BC | END | disposition home or self-care (01) | LOC: CSSDAY 09:17 | DX: K50.90 Crohn's disease, unspecified, without complications (principal); R63.4 Abnormal weight loss | CPT/HCPCS: J1745 ==